=== PATIENT | female | born 1955 | race Caucasian/White ===

== ENCOUNTER 2017-07-14 19:09 | Emergency (ER) | payer BC ==
[~2017-07-14] VITALS: Ht 160 cm; Wt 108.9 kg
[~2017-07-14 19:09] MED LIST: FLEXERIL PO; GLUCOPHAGE1000 MG PO; LASIX 20 MG TAB20 MG PO; LISINOPRIL20 MG PO; MOBIC15 MG PO; NORCO 5-325 TA1 EACH PO; PROAIR HFA8.5 GM INH; TRAMADOL 50 MG50 MG PO; XANAX 0.5 MG0.5 MG PO
[2017-07-14] MEDS ORDERED: CINNAMON500 MG PO (19:12)
[2017-07-14] MEDS ORDERED: TURMERIC500 M2 PO (19:13)
[2017-07-14] MEDS ORDERED: NORCO 5-325 TA1 EACH PO (20:08)
[2017-07-14 20:30] VITALS: BP 122/70
== END 2017-07-14 20:30 | disposition home or self-care (01) ==
LOC: M.ERS 19:09
DX: M25.521 Pain in right elbow (principal); M19.90 Unspecified osteoarthritis, unspecified site; E11.9 Type 2 diabetes mellitus without complications; Z96.651 Presence of right artificial knee joint; Z88.5 Allergy status to narcotic agent; Z88.2 Allergy status to sulfonamides